=== PATIENT | male | born 1965 | race Caucasian/White ===

== ENCOUNTER 2017-07-18 12:01 | Inpatient (IN) | payer OTHER ==
[~2017-07-18] VITALS: Ht 195.6 cm; Wt 109.0 kg
[2017-07-18 12:06] VITALS: BP 154/79
--- NOTE | 2017-07-18 12:21 | Emergency Room Report ---
History of Present Illness Time Seen by [id number] Presenting Problem in Triage Pt arrived:Walked Presenting Problem:CHEST PAIN AND LEFT ARM PAIN, DIAPHORESIS. Onset of symptoms date/time:07/17 or onset unknown for:MEDICAL HX UNKNOWN Treatment Prior to Arrival: ONE 81MG ASA PRESS TENDER STAR SIGNAL Provided by:SELF Sepsis Risk Assessment: Temp: B/P: 154/79 MAP: 104 Pulse: 71 Resp: 22 Recent fever? N Clinical Suspician of Infection? N Mental Status: 1 - Regular (Normal Baseline) Sepsis Risk:Low Sepsis Risk Have you (or family members/close friends) recently traveled outside the [place]? N If Yes, where/when: Have you had exposure to infectious disease within the past month? TB? Other? Specify: Chest pain intermittently since about four days ago, takes daily aspirin. Presented to cardiology today and NOVELTY MAKER obtained EKG, sent patient to ED for STEMI. Patient reports pain is SS, rad to LUE, constant since 0300 today, associated with SOB, nausea; no leg pain. Reports no hx of known CAD, states smokes, has hyperlipidemia, hypertension, mom hx CAD. ALLERGIES Coded Allergies: No Known Allergies (07/18/17) History Medical History General Angina: No IN: No Hypertension? Yes CHF? No Immunization Hx DT/Tetanus Unknown Surgical Hx Previous Surgery?N Social History Smoking Hx Smoker: Current Every Day Smoker Tobacco: Yes Type Cigarettes Packs/day 1 1/2 - 2 Packs Are you/the child exposed to second-hand smoke: Yes Alcohol Alcohol: No Review of Systems All Other Systems Reviewed and Negative Cardiovascular see HPI Physical Exam Vital Signs Vital Signs Date Time Temp Pulse Resp B/P Pulse O2 O2 Flow FiO2 Ox Delivery Rate 07/18 1206 71 22 154/79 94 General Appearance normal appearance, WD/WN, mild distress Eye Exam - bilateral eye normal exam, bilateral eye PERRL, bilateral eye abnormal EOM Neck normal inspection, non-tender, supple, full range of motion Respiratory Status Yes: trachea midline, chest symmetrical, non tender chest. No: respiratory distress, tender on palpation, use of accessory muscles, pain on inspiration, pain on expiration, productive cough, non productive cough. Lung Sounds bilateral: normal breath sounds, lungs clear. Cardiovascular normal exam, regular rate/rhythm, no peripheral edema, no gallop, no JVD, no murmur, no rub, normal peripheral pulses Gastrointestinal normal bowel sounds, normal exam, non tender, soft, no organomegaly, no pulsatile mass, no guarding, no rebound Extremities non-tender, normal range of motion, normal inspection, normal capillary refill Strength 5 Upper Ext (L), 5 Upper Ext (R), 5 Lower Ext (L), 5 Lower Ext (R) Neurologic alert, normal exam, no motor/sensory deficits, oriented x 3 Glascow Coma Scale Glascow Coma Scale Response Value EYE response: 4 Spontaneously 4 MOTOR response: 6 OBEYS 6 VERBAL response: 5 Oriented & Converses 5 Total 15 Skin intact, normal color, warm/dry Medical Decision Making LABS/Meds/Orders Pt receiving controlled substance in ED? No Results/Orders Current Medication Orders Sig/Kendall Start time Last Medication Dose Route Stop Time Status Admin Aspirin 0 .STK-MED ONE 07/18 1205 DC .ROUTE Ticagrelor 0 .STK-MED ONE 07/18 1205 DC PO Heparin Sodium 0 .STK-MED ONE 07/18 1203 DC (Porcine) .ROUTE Orders Procedure Date/time Status LHC W/VENTRICLE 07/18 1216 Active CM/EKG CM/EKG EKG NSR, no EKG for comparison, ST elevation (inferior ST elevation) Consult Physician Consult Time Called 1215 Reason Pt. Condition ( ) Comments transferred to roofing laborer after aspirin and Brilenta given Departure Departure Time of Disposition 1210 Disposition Still a Patient Clinical Impression Primary Impression: Acute inferior myocardial infarction Condition STABLE Referrals FELIX GARCIA (PCP) ED Critical Care Critical Care Yes Time spent < 30 min Vital system(s) involved: Circulatory Failure (acute IN), acute IN I was present at bedside for Coordinating pt's care, Interpreting EKGs/Strips , During my initial exam at 1221
--- NOTE | 2017-07-18 12:21 | Emergency Room Report ---
History of Present Illness Time Seen by [id number] Presenting Problem in Triage Pt arrived:Walked Presenting Problem:CHEST PAIN AND LEFT ARM PAIN, DIAPHORESIS. Onset of symptoms date/time:07/17 or onset unknown for:MEDICAL HX UNKNOWN Treatment Prior to Arrival: ONE 81MG ASA CHANGE CONTROL COORDINATOR Provided by:SELF Sepsis Risk Assessment: Temp: B/P: 154/79 MAP: 104 Pulse: 71 Resp: 22 Recent fever? N Clinical Suspician of Infection? N Mental Status: 1 - Regular (Normal Baseline) Sepsis Risk:Low Sepsis Risk Have you (or family members/close friends) recently traveled outside the [place]? N If Yes, where/when: Have you had exposure to infectious disease within the past month? TB? Other? Specify: Chest pain intermittently since about four days ago, takes daily aspirin. Presented to cardiology today and ZINC PLATE CUTTER obtained EKG, sent patient to ED for STEMI. Patient reports pain is SS, rad to LUE, constant since 0300 today, associated with SOB, nausea; no leg pain. Reports no hx of known CAD, states smokes, has hyperlipidemia, hypertension, mom hx CAD. ALLERGIES Coded Allergies: No Known Allergies (07/18/17) History Medical History General Angina: No AL: No Hypertension? Yes CHF? No Immunization Hx DT/Tetanus Unknown Surgical Hx Previous Surgery?N Social History Smoking Hx Smoker: Current Every Day Smoker Tobacco: Yes Type Cigarettes Packs/day 1 1/2 - 2 Packs Are you/the child exposed to second-hand smoke: Yes Alcohol Alcohol: No Review of Systems All Other Systems Reviewed and Negative Cardiovascular see HPI Physical Exam Vital Signs Vital Signs Date Time Temp Pulse Resp B/P Pulse O2 O2 Flow FiO2 Ox Delivery Rate 07/18 1206 71 22 154/79 94 General Appearance normal appearance, WD/WN, mild distress Eye Exam - bilateral eye normal exam, bilateral eye PERRL, bilateral eye abnormal EOM Neck normal inspection, non-tender, supple, full range of motion Respiratory Status Yes: trachea midline, chest symmetrical, non tender chest. No: respiratory distress, tender on palpation, use of accessory muscles, pain on inspiration, pain on expiration, productive cough, non productive cough. Lung Sounds bilateral: normal breath sounds, lungs clear. Cardiovascular normal exam, regular rate/rhythm, no peripheral edema, no gallop, no JVD, no murmur, no rub, normal peripheral pulses Gastrointestinal normal bowel sounds, normal exam, non tender, soft, no organomegaly, no pulsatile mass, no guarding, no rebound Extremities non-tender, normal range of motion, normal inspection, normal capillary refill Strength 5 Upper Ext (L), 5 Upper Ext (R), 5 Lower Ext (L), 5 Lower Ext (R) Neurologic alert, normal exam, no motor/sensory deficits, oriented x 3 Glascow Coma Scale Glascow Coma Scale Response Value EYE response: 4 Spontaneously 4 MOTOR response: 6 OBEYS 6 VERBAL response: 5 Oriented & Converses 5 Total 15 Skin intact, normal color, warm/dry Medical Decision Making LABS/Meds/Orders Pt receiving controlled substance in ED? No Results/Orders Current Medication Orders Sig/Kendall Start time Last Medication Dose Route Stop Time Status Admin Aspirin 0 .STK-MED ONE 07/18 1205 DC .ROUTE Ticagrelor 0 .STK-MED ONE 07/18 1205 DC PO Heparin Sodium 0 .STK-MED ONE 07/18 1203 DC (Porcine) .ROUTE Orders Procedure Date/time Status LHC W/VENTRICLE 07/18 1216 Active CM/EKG CM/EKG EKG NSR, no EKG for comparison, ST elevation (inferior ST elevation) Consult Physician Consult Time Called 1215 Reason Pt. Condition ( ) Comments transferred to catheterization laboratory technician after aspirin and Brilenta given Departure Departure Time of Disposition 1210 Disposition Still a Patient Clinical Impression Primary Impression: Acute inferior myocardial infarction Condition STABLE Referrals FELIX GARCIA (PCP) ED Critical Care Critical Care Yes Time spent < 30 min Vital system(s) involved: Circulatory Failure (acute AL), acute AL I was present at bedside for Coordinating pt's care, Interpreting EKGs/Strips , During my initial exam at 1221
[2017-07-18 12:31] LABS: HEMOGLOBIN 17.6 g/dL (14.1-18.0); LYMPH # 2.9 K/mm3 (0.7-4.5); LYMPH % 26.1 % (10-50)
--- OUTSIDE RECORDS SUMMARY | 2017-07-18 13:11 | External Medical Summary Rpt | CCD ---
Author Author Conduent Organization Conduent Address Unknown Phone Unavailable Purpose Continuity of Care Document - through 2016
--- OUTSIDE RECORDS SUMMARY | 2017-07-18 13:11 | External Medical Summary Rpt | CCD ---
Author Author , [employer] Address Unknown Phone [email or web address] Immunization Name Date Rout CVX Reac Dose Comm Prov Is Faci e tion ent ider Refu lity Give sed n Infl 12-1 140 0.5 Hist [facility] No [facility] uenz 6-20 mL oric 1 1 a, 14 al P-Fr Info ee rmat ion - Sour ce Unsp ecif ied
--- OUTSIDE RECORDS SUMMARY | 2017-07-18 13:11 | External Medical Summary Rpt | CCD ---
Author Author , BEL Organization BEL Address Unknown Phone [email or web address] Purpose Continuity of Care Document - 03-31-2013 through 2016 Results Labs Lab Lab Date Result Refere Interp Status Commen Order [place] [address]-9 (2013 04:15) *GFR complet 013 only ed 04:15 applies to adults over the age 18. If complet 013 patient ed 04:15 is Olga Lidia n, multipl y GFR by 1.120. Normal complet 013 Range: ed 04:15 60 Ml/min/ 1.73 sq meters GLOMERU complet 013 LAR ed 04:15 FILTRAT ION RATE INTERPR ETATION OSMOLAL 278 272 - complet ITY 013 295 ed 04:15 BUN/CRE 9 ratio 6 - 25 complet RATIO 013 ed 04:15 CALCIUM 8.2 8.50 - Below complet 013 mg/dl 10.10 low ed 04:15 normal GFR 60 complet 013 ml/min ed 04:15 AGE [age] yrs complet 013 ed 04:15 CREATIN 1.1 0.60 - complet INE 013 mg/dl 1.30 ed 04:15 BUN 10 7 - 18 complet 013 mg/dl ed 04:15 GLUCOSE 151 70 - Above complet 013 mg/dl 120 high ed 04:15 normal ANION 13 5 - 15 complet GAP 013 mmol/L ed 04:15 TOTAL 25 21 - 32 complet CO2 013 mmol/L ed 04:15 CHLORID 103 98 - complet E 013 mmol/L 107 ed 04:15 POTASSI 3.4 3.50 - Below complet UM 013 mmol/L 5.10 low ed 04:15 normal SODIUM 09-11-2 138 136 - complet 013 mmol/L 145 ed 04:15 [id number] (2013 04:15) Manual 09-11-2 NOT complet Diff 013 INDICAT ed 04:15 ED BA# 09-11-2 0.11 0.00 - complet 013 K/uL 0.20 ed 04:15 EO# 09-11-2 0.25 0.00 - complet 013 K/uL 0.70 ed 04:15 NE# 09-11-2 6.12 2.00 - complet 013 K/uL 6.90 ed 04:15 MO# 09-11-2 0.48 0.00 - complet 013 K/uL 0.90 ed 04:15 LY# 09-11-2 3.13 0.60 - complet 013 K/uL 3.40 ed 04:15 BA% 09-11-2 1.10 % 0.00 - complet 013 2.50 ed 04:15 EO% 09-11-2 2.50 % 0.00 - complet 013 7.00 ed 04:15 NE% 09-11-2 60.6 % 37.0 - complet 013 80.0 ed 04:15 MO% 0911-2 4.8 % 0.0 - complet 013 12.0 ed 04:15 LY% 0911-2 31.0 % 10.0 - complet 013 50.0 ed 04:15 PLT --2 187 142 - complet 013 K/uL 424 ed 04:15 RDW 05-08-2 13.7 % 11.60 - complet 013 14.80 ed 04:15 MCHC --2 34.7 31.80 - complet 013 g/dL 35.40 ed 04:15 MCH -11-2 31.1 pg 27.0 - complet 013 31.20 ed 04:15 MCV --2 89.8 fL 80.0 - complet 013 97.0 ed 04:15 HCT -11-2 45 % 37.70 - complet 013 53.70 ed 04:15 HGB --2 15.6 12.20 - complet 013 g/dL 18.10 ed 04:15 RBC -11-2 5.01 4.04 - complet 013 M/uL 6.13 ed 04:15 WBC -11-2 10.1 4.60 - complet 013 K/uL 10.20 ed 04:15 [facility] wCPK (2013 01:25) CKMB 0.5 0.01 - complet 013 ng/ml 3.60 ed 01:25 RELATIV complet 013 E INDEX ed 01:25 NOT AVAILAB LE ON PATIENT S W/GAEL L CKMB AMI > complet 013 5.0 > ed 01:25 4.0 05-08- [place] complet 013 ZONE > ed 01:25 5.0 </= 4.0 05-08- NON AMI complet 013 </= ed 01:25 5.0 NA MMB complet 013 (ng/ml) ed 01:25 Relativ e Index CKMB NOT 0 - complet INDEX 013 APPL % 4.10 ed 01:25 CK 05-08- 47 U/L 26 - complet 013 308 ed 01:25 [id number] (2013 01:25) TROPONI 05-08- 0.01 0.00 - complet N-I 013 ng/ml 0.06 ed 01:25 0.06 complet 013 ng/ml ed 01:25 (POSITI VE) 0 - complet 013 0.06 ed 01:25 ng/ml (NEGATI VE) INITIAL complet 013 ed 01:25 TROPONI N? __NO_ 3.0238. MJS. . .M [facility] wCPK (05-07-2013 19:20) RELATIV complet 013 E INDEX ed 19:20 NOT AVAILAB LE ON PATIENT S W/GAEL L CKMB 05-07-2 AMI > complet 013 5.0 > ed 19:20 4.0 -- [place] complet 013 ZONE > ed 19:20 5.0 </= 4.0 -10-2 NON AMI complet 013 </= ed 19:20 5.0 NA --2 MMB complet 013 (ng/ml) ed 19:20 Relativ e Index CKMB 05-07-2 NOT 0 - complet INDEX 013 APPL % 4.10 ed 19:20 CK --2 54 U/L 26 - complet 013 308 ed 19:20 CKMB 0.3 0.01 - complet 013 ng/ml 3.60 ed 19:20 [id number] (05-07-2013 19:20) > 0.06 complet 013 ng/ml ed 19:20 (POSITI VE) 0 - complet 013 0.06 ed 19:20 ng/ml (NEGATI VE) INITIAL complet 013 ed 19:20 TROPONI N? __NO_ 3.1952. MJS. . .M TROPONI 0.00 0.00 - complet N-I 013 ng/ml 0.06 ed 19:20 CKMB wCPK (05-07-2013 13:25) RELATIV complet 013 E INDEX ed 13:25 NOT AVAILAB LE ON PATIENT S W/GAEL L CKMB AMI > complet 013 5.0 > ed 13:25 4.0 [place] complet 013 ZONE > ed 13:25 5.0 </= 4.0 NON AMI complet 013 </= ed 13:25 5.0 NA MMB complet 013 (ng/ml) ed 13:25 Relativ e Index CKMB NOT 0 - complet INDEX 013 APPL % 4.10 ed 13:25 CK 50 U/L 26 - complet 013 308 ed 13:25 CKMB 0.6 0.01 - complet 013 ng/ml 3.60 ed 13:25 [id number] (05-07-2013 13:25) > 0.06 complet 013 ng/ml ed 13:25 (POSITI VE) 0 - complet 013 0.06 ed 13:25 ng/ml (NEGATI VE) INITIAL complet 013 ed 13:25 TROPONI N? __NO_ 3.1402. MDA. . .M TROPONI 0.01 0.00 - complet N-I 013 ng/ml 0.06 ed 13:25 [id number] (05-07-2013 09:56) Crystal NEGATIV NL: active s 013 E NEGATIV 09:56 E Casts 09-10-2 NEGATIV NL: active 013 E NEGATIV 09:56 E Yeast 09-10-2 NEGATIV NL: active 013 E NEGATIV 09:56 E Mucous 09-10-2 NEGATIV NL: active 013 E NEGATIV 09:56 E Bacteri 09-10-2 NEGATIV NL: active a 013 E NEGATIV 09:56 E Epi 09-10-2 NEGATIV NL: active Cells 013 E NEGATIV 09:56 E Wbc 09-10-2 NEGATIV NL: active 013 E NEGATIV 09:56 E MICROSC 09-10-2 See active OPIC 013 Below_ 09:56 Leukocy 09-10-2 NEG NL: complet tobias 013 Negativ ed 09:56 e Nitrite 09-10-2 NEG NL: complet 013 Negativ ed 09:56 e Urobili 09-10-2 0.2 NL: 0.2 complet nogen 013 - 1.0 ed 09:56 Protein 09-10-2 NEG NL: complet 013 Negativ ed 09:56 e pH 09-10-2 6.0 NL: complet 013 ed 09:56 Blood 09-10-2 NEG NL: complet 013 Negativ ed 09:56 e Specifi 09--2 1.010 NL: complet c Gr 013 1.00 >= ed 09:56 1.030 Ketones -10-2 NEG NL: complet 013 Negativ ed 09:56 e Bilirub --2 NEG NL: complet in 013 Negativ ed 09:56 e Glucose -10-2 NEG NL: complet 013 Negativ ed 09:56 e Clarity 09-10-2 CLEAR NL: complet 013 Negativ ed 09:56 e Color 09-10-2 LT. NL: complet 013 YELL Negativ ed 09:56 e CULTURE --2 NOT complet SETUP 013 INDIC ed 09:56 METH OF --2 C CATCH complet GINNY 013 ed 09:56 Rbc 09-10-2 NEGATIV NL: active 013 E NEGATIV 09:56 E [id number] (05-07-2013 07:32) 09-10-2 > 0.06 complet 013 ng/ml ed 07:32 (POSITI VE) --2 0 - complet 013 0.06 ed 07:32 ng/ml (NEGATI VE) INITIAL complet 013 ed 07:32 TROPONI N? _YES_ 3.0808. MDA. . .M TROPONI 0.00 0.00 - complet N-I 013 ng/ml 0.06 ed 07:32 [id number] (05-07-2013 07:32) LIPASE 372 U/L 73 - complet 013 393 ed 07:32 CKMB wCPK (05-07-2013 07:32) RELATIV complet 013 E INDEX ed 07:32 NOT AVAILAB LE ON PATIENT S W/GAEL L CKMB AMI > complet 013 5.0 > ed 07:32 4.0 [place] complet 013 ZONE > ed 07:32 5.0 </= 4.0 NON AMI complet 013 </= ed 07:32 5.0 NA MMB complet 013 (ng/ml) ed 07:32 Relativ e Index CKMB NOT 0 - complet INDEX 013 APPL % 4.10 ed 07:32 CK 51 U/L 26 - complet 013 308 ed 07:32 CKMB 0.4 0.01 - complet 013 ng/ml 3.60 ed 07:32 [id number] (05-07-2013 07:32) AMYLASE 74 IU/L 25 - complet 013 115 ed 07:32 [id number] (05-07-2013 07:32) MYOGLOB 50 10 - 92 complet IN 013 ng/ml ed 07:32 C DIFFICLE TOXIN STOOL AB EIA (05-06-2013 14:33) REPORT YES complet TO IC 013 ed 14:33 C. diff NEGATIV NORMAL: complet Toxin 013 E ed A/B: 14:33 NEGATIV E Consist Semi-so complet ency: 013 lid ed 14:33 [id number] (05-06-2013 14:33) Mucous NEGATIV NL: active 013 E NEGATIV 14:33 E CULTURE 09-09-2 NOT complet SETUP 013 INDIC ed 14:33 METH OF C CATCH complet GINNY 013 ed 14:33 Crystal NEGATIV NL: active s 013 E NEGATIV 14:33 E Casts NEGATIV NL: active 013 E NEGATIV 14:33 E Yeast NEGATIV NL: active 013 E NEGATIV 14:33 E Bacteri NEGATIV NL: active a 013 E NEGATIV 14:33 E Epi NEGATIV NL: active Cells 013 E NEGATIV 14:33 E Rbc NEGATIV NL: active 013 E NEGATIV 14:33 E Wbc NEGATIV NL: active 013 E NEGATIV 14:33 E MICROSC See active OPIC 013 Below_ 14:33 Leukocy NEG NL: complet tobias 013 Negativ ed 14:33 e Nitrite NEG NL: complet 013 Negativ ed 14:33 e Urobili 1.0 NL: 0.2 complet nogen 013 - 1.0 ed 14:33 Protein NEG NL: complet 013 Negativ ed 14:33 e pH 6.0 NL: complet 013 ed 14:33 Blood NEG NL: complet 013 Negativ ed 14:33 e Specifi >=1.030 NL: complet c Gr 013 1.00 >= ed 14:33 1.030 Ketones NEG NL: complet 013 Negativ ed 14:33 e Bilirub NEG NL: complet in 013 Negativ ed 14:33 e Glucose NEG NL: complet 013 Negativ ed 14:33 e Clarity CLEAR NL: complet 013 Negativ ed 14:33 e Color YELLOW NL: complet 013 Negativ ed 14:33 e [id number] (05-06-2013 10:53) SODIUM 134 136 - Below complet 013 mmol/L 145 low ed 10:53 normal *GFR complet 013 only ed 10:53 applies to adults over the age 18. If complet 013 patient ed 10:53 is Olga Lidia n, multipl y GFR by 1.120. Normal complet 013 Range: ed 10:53 60 Ml/min/ 1.73 sq meters /BLDo/G complet 013 LOMERUL ed 10:53 AR FILTRAT ION RATE INTERPR ETATION /BLDx/ A/G 1.3 1.0 - complet RATIO 013 ratio 3.90 ed 10:53 GLOBULI 3.2 1.30 - complet N 013 g/dl 3.50 ed 10:53 ALBUMIN 4.1 3.40 - complet 013 g/dl 5.0 ed 10:53 TOTAL 7.3 6.40 - complet PROTEIN 013 g/dl 8.20 ed 10:53 ALK 100 50 - complet PHOS 013 IU/L 136 ed 10:53 ALT 50 IU/L 12 - 78 complet (SGPT) 013 ed 10:53 AST 21 IU/L 15 - 37 complet (SGOT) 013 ed 10:53 TOTAL 1.4 0.20 - Above complet ARACELI 013 mg/dl 1.0 high ed 10:53 normal CALCIUM 8.7 8.50 - complet 013 mg/dl 10.10 ed 10:53 GFR 60 complet 013 ml/min ed 10:53 AGE [age] yrs complet 013 ed 10:53 CREATIN 1.0 0.60 - complet INE 013 mg/dl 1.30 ed 10:53 BUN 14 7 - 18 complet 013 mg/dl ed 10:53 GLUCOSE 90 70 - complet 013 mg/dl 120 ed 10:53 ANION 14 5 - 15 complet GAP 013 mmol/L ed 10:53 TOTAL 25 21 - 32 complet CO2 013 mmol/L ed 10:53 CHLORID 99 98 - complet E 013 mmol/L 107 ed 10:53 POTASSI 3.6 3.50 - complet UM 013 mmol/L 5.10 ed 10:53 [id number] (05-06-2013 10:53) TSH 05-06- 1.20 0.36 - complet 013 uIU/mL 3.74 ed 10:53 [id number] (05-06-2013 10:53) URIC 05-06- 3.5 2.60 - complet ACID 013 mg/dL 7.20 ed 10:53 [id number] (05-06-2013 10:53) EO# 09-09-2 0.21 0.00 - complet 013 K/uL 0.70 ed 10:53 NE# [id number] 10.45 2.00 - Above complet 013 K/uL 6.90 high ed 10:53 normal MO# 05-06-2 1.23 0.00 - Above complet 013 K/uL 0.90 high ed 10:53 normal LY# 05-06- 2.69 0.60 - complet 013 K/uL 3.40 ed 10:53 BA% 05-06- 0.80 % 0.00 - complet 013 2.50 ed 10:53 EO% 05-06-2 1.40 % 0.00 - complet 013 7.00 ed 10:53 NE% 05-06- 71.1 % 37.0 - complet 013 80.0 ed 10:53 MO% 05-06-2 8.4 % 0.0 - complet 013 12.0 ed 10:53 LY% 05-06- 18.3 % 10.0 - complet 013 50.0 ed 10:53 PLT 244 142 - complet 013 K/uL 424 ed 10:53 RDW 13.8 % 11.60 - complet 013 14.80 ed 10:53 MCHC 36.0 31.80 - Above complet 013 g/dL 35.40 high ed 10:53 normal MCH 05-06- 31.8 pg 27.0 - Above complet 013 31.20 high ed 10:53 normal MCV 88.4 fL 80.0 - complet 013 97.0 ed 10:53 HCT 05-06- 48 % 37.70 - complet 013 53.70 ed 10:53 HGB 17.3 12.20 - complet 013 g/dL 18.10 ed 10:53 RBC 05-06- 5.44 4.04 - complet 013 M/uL 6.13 ed 10:53 WBC 14.7 4.60 - Above complet 013 K/uL 10.20 high ed 10:53 normal Manual NOT complet Diff 013 INDICAT ed 10:53 ED BA# 0.12 0.00 - complet 013 K/uL 0.20 ed 10:53 [id number] (03-31-2013 08:25) URIC 2.5 2.60 - Below complet ACID 013 mg/dL 7.20 low ed 08:25 normal
--- OUTSIDE RECORDS SUMMARY | 2017-07-18 13:11 | External Medical Summary Rpt | CCD ---
Author Author , BEL Organization BEL Address Unknown Phone [email or web address] Purpose Continuity of Care Document - 03-31-2013 through 2016 Results Labs Lab Lab Date Result Refere Interp Status Commen Order [place] [address]-3 (2013 04:15) *GFR complet 013 only ed [...] - complet 013 mmol/L 145 ed 04:15 [id number] (2013 04:15) Manual 09-11-2 NOT complet Diff [...] - complet 013 K/uL 10.20 ed 04:15 [facility] wCPK (2013 01:25) CKMB 0.5 0.01 - [...] 26 - complet 013 308 ed 01:25 [id number] (2013 01:25) TROPONI 05-08- 0.01 0.00 - complet N-I 013 ng/ml 0.06 ed 01:25 0.06 complet 013 ng/ml ed 01:25 (POSITI VE) 0 - complet 013 0.06 ed 01:25 ng/ml (NEGATI VE) INITIAL complet 013 ed 01:25 TROPONI N? __NO_ 3.0238. MJS. . .M [facility] wCPK (05-07-2013 19:20) RELATIV complet 013 E [...] - complet 013 ng/ml 3.60 ed 19:20 [id number] (05-07-2013 19:20) > 0.06 complet 013 ng/ml [...] - complet 013 ng/ml 3.60 ed 13:25 [id number] (05-07-2013 13:25) > 0.06 complet 013 ng/ml ed 13:25 (POSITI VE) 0 - complet 013 0.06 ed 13:25 ng/ml (NEGATI VE) INITIAL complet 013 ed 13:25 TROPONI N? __NO_ 3.1402. MDA. . .M TROPONI 0.01 0.00 - complet N-I 013 ng/ml 0.06 ed 13:25 [id number] (05-07-2013 09:56) Crystal NEGATIV NL: active s [...] NL: active 013 E NEGATIV 09:56 E [id number] (05-07-2013 07:32) 09-10-2 > 0.06 complet 013 [...] Semi-so complet ency: 013 lid ed 14:33 [id number] (05-06-2013 14:33) Mucous NEGATIV NL: active 013 [...] NL: complet 013 Negativ ed 14:33 e 92457-5 (05-06-2013 10:53) SODIUM 134 136 - Below [...] complet UM 013 mmol/L 5.10 ed 10:53 [id number] (05-06-2013 10:53) TSH 05-06- 1.20 0.36 - complet 013 uIU/mL 3.74 ed 10:53 [id number] (05-06-2013 10:53) URIC 05-06- 3.5 2.60 - complet ACID 013 mg/dL 7.20 ed 10:53 [id number] (05-06-2013 10:53) EO# 09-09-2 0.21 0.00 - [...]
--- OUTSIDE RECORDS SUMMARY | 2017-07-18 13:11 | External Medical Summary Rpt | CCD ---
Author Author , [employer] Address Unknown Phone [email or web address] Immunization Name Date Rout CVX Reac Dose Comm Prov Is Faci e tion ent ider Refu lity Give sed n Infl 12-1 140 0.5 Hist [facility] No [facility] uenz 6-20 mL oric 1 1 a, 14 al P-Fr Info ee rmat ion - Sour ce Unsp ecif ied
--- OUTSIDE RECORDS SUMMARY | 2017-07-18 15:45 | External Medical Summary Rpt | CCD ---
Author Author , [employer] Address Unknown Phone [email or web address] [email or web address] Name Date Rout CVX Reac Dose Comm Prov Is Faci e tion ent ider Refu lity Give sed n Infl 12-1 140 0.5 Hist [facility] No [facility] uenz 6-20 mL oric 1 1 a, 14 al P-Fr Info ee rmat ion - Sour ce Unsp ecif ied
--- OUTSIDE RECORDS SUMMARY | 2017-07-18 15:45 | External Medical Summary Rpt | CCD ---
Demographics Home Phone Preferred Language Guamanian Marital Status Unknown [place] Affiliation Unknown Race Unknown Ethnic Group Unknown Author Author , [facility] Organization BEL Address Unknown Phone [email or web address] Purpose Continuity of Care Document - 03-31-2013 through 2016 Results Labs Lab Lab Date Result Refere Interp Status Commen Order Detail nces retati t Range on Activated clotting time (07-18-2017 13:31) Activat = 327 74-125 complet ed 017 SEC ed clottin 13:31 g time Activated clotting time (07-18-2017 12:54) Activat > 400 74-125 complet ed 017 SEC ed clottin 12:54 g time CBC w auto diff (07-18-2017 12:04) Automat = 0.2 0-0.2 complet ed 017 K/MM3 ed blood 12:04 basophi l count (count/ vo Baso % = 1.5 % 0.1-2.0 complet 017 ed 12:04 Automat = 0.3 0.0-0.4 complet ed 017 K/mm3 ed blood 12:04 eosinop hil count Automat = 2.8 % 0.1-12. complet ed 017 0 ed blood 12:04 eosinop hils/10 0 leukocy t Blood = 7.2 1.3-8.0 complet granulo 017 K/mm3 ed cytes 12:04 automat ed count (numb Granulo = 64.3 37.0-80 complet cyte 017 % .0 ed percent 12:04 age Blood = 51.5 42.0-52 complet hematoc 017 % .0 ed rit 12:04 (volume fractio n) Blood = 17.6 14.1-18 complet hemoglo 017 g/dL .0 ed bin 12:04 measure ment (mass/v olum Absolut = 2.9 0.7-4.5 complet e 017 K/mm3 ed lymphoc 12:04 yte count Lymphoc = 26.1 10-50 complet yte 017 % ed count, 12:04 blood, automat ed Mean = 31.0 27-31.2 complet corpusc 017 pg ed ular 12:04 hemoglo bin (MCH) determ Automat = 34.2 31.8-35 complet ed 017 g/dl .4 ed erythro 12:04 cyte mean corpusc ular h Automat = 90.7 82.2-97 complet ed 017 fl .8 ed erythro 12:04 cyte mean corpusc ular v Absolut = 0.6 0.1-1.0 complet e 017 K/mm3 ed monocyt 12:04 e count [place] % = 5.4 % 1.7-9.3 complet 017 ed 12:04 Automat = 8.1 7.4-10. complet ed 017 fl 4 ed blood 12:04 platele t mean volume jami Blood = 190 142-424 complet platele 017 K/mm3 ed t count 12: Red = 5.68 4.6-6.2 complet blood 017 M/mm3 ed cell 12:04 count Automat = 12.6 11.5-17 complet ed 017 % .5 ed erythro 12:04 cyte distrib ution width Blood = 11.1 4.8-10. complet leukocy 017 K/MM3 8 ed tobias 12:04 count (number /volume ) Basic metabolic panel (07-18-2017 12:04) Serum = 12 7-18 complet or 017 mg/dL ed plasma 12:04 urea nitroge n measure men Serum = 8.7 8.5-10. complet or 017 mg/dL 1 ed plasma 12:04 calcium measure ment (mas Serum = 104 98-107 complet or 017 mmoL/L ed plasma 12:04 chlorid e measure ment (mo Carbon = 31 21.0-32 complet dioxide 017 mmoL/L .0 ed 12:04 measure ment Serum = 1.0 0.70-1. complet or 017 mg/dL 30 ed plasma 12:04 creatin ine measure ment ( Estimat = 122 50-200 complet ion of 017 ML/MIN ed creatin 12:04 ine renal clearan ce Estimat = 78 >60 complet ed 017 ML/MIN ed glomeru 12:04 lar filtrat ion rate (GF Comment: REFERENCE RANGE: >60 ML/MIN/1.73 SQUARE METERS Comment: If this patient is -[place], then multiply the Comment: result by 1.210. Serum = 103 74-106 complet or 017 mg/dL ed plasma 12:04 glucose measure ment (mas Serum = 4.1 3.5-5.1 complet potassi 017 mmoL/L ed um 12:04 measure ment Serum = 143 136-145 complet sodium 017 mmoL/L ed measure 12:04 ment Cardiac enzymes (07-18-2017 12:04) Serum = 11.8 0-4.0 complet or 017 U/L ed plasma 12:04 creatin e kinase MB (CK-M Serum = 51.9 0.0-3.6 complet or 017 ng/mL ed plasma 12:04 creatin e kinase MB measu Comment: CRITICAL RESULTS Comment: RESULTS CALLED TO: ERICA 07/18/17 1316 Rosangela Gifford Serum = 441 39-308 complet or 017 U/L ed plasma 12:04 creatin e kinase measure m Serum = 2.89 0.00-0. complet or 017 ng/mL 06 ed plasma 12:04 troponi n i.cardi ac measu Comment: CRITICAL RESULTS Comment: RESULTS CALLED TO: ERICA 07/18/17 1324 Rosangela Gifford Comment: > 0.5 IS CONSISTENT WITH MYOCARDIAL ISCHEMIA OR INFARCTION 21953-7 (2013 04:15) WBC 10.1 4.60 - complet 013 K/uL 10.20 ed 04:15 RBC 5.01 4.04 - complet 013 M/uL 6.13 ed 04:15 HGB 15.6 12.20 - complet 013 g/dL 18.10 ed 04:15 HCT 45 % 37.70 - complet 013 53.70 ed 04:15 MCV 89.8 fL 80.0 - complet 013 97.0 ed 04:15 MCH 31.1 pg 27.0 - complet 013 31.20 ed 04:15 MCHC 34.7 31.80 - complet 013 g/dL 35.40 ed 04:15 RDW 13.7 % 11.60 - complet 013 14.80 ed 04:15 PLT 187 142 - complet 013 K/uL 424 ed 04:15 LY% 31.0 % 10.0 - complet 013 50.0 ed 04:15 MO% 05-08-2 4.8 % 0.0 - complet 013 12.0 ed 04:15 NE% 2 60.6 % 37.0 - complet 013 80.0 ed 04:15 EO% 2 2.50 % 0.00 - complet 013 7.00 ed 04:15 BA% 1.10 % 0.00 - complet 013 2.50 ed 04:15 LY# 11-2 3.13 0.60 - complet 013 K/uL 3.40 ed 04:15 MO# -11-2 0.48 0.00 - complet 013 K/uL 0.90 ed 04:15 NE# -11-2 6.12 2.00 - complet 013 K/uL 6.90 ed 04:15 EO# 11-2 0.25 0.00 - complet 013 K/uL 0.70 ed 04:15 BA# -11-2 0.11 0.00 - complet 013 K/uL 0.20 ed 04:15 Manual 2 NOT complet Diff 013 INDICAT ed 04:15 [place] [id number] (2013 04:15) SODIUM 05-08- 138 136 - complet 013 mmol/L 145 ed 04:15 POTASSI 3.4 3.50 - Below complet UM 013 mmol/L 5.10 low ed 04:15 normal CHLORID 103 98 - complet E 013 mmol/L 107 ed 04:15 TOTAL 25 21 - 32 complet CO2 013 mmol/L ed 04:15 ANION 13 5 - 15 complet GAP 013 mmol/L ed 04:15 GLUCOSE 151 70 - Above complet 013 mg/dl 120 high ed 04:15 normal BUN 10 7 - 18 complet 013 mg/dl ed 04:15 CREATIN 1.1 0.60 - complet INE 013 mg/dl 1.30 ed 04:15 AGE 09 48 yrs complet 013 ed 04:15 GFR 60 complet 013 ml/min ed 04:15 CALCIUM 8.2 8.50 - Below complet 013 mg/dl 10.10 low ed 04:15 normal BUN/CRE 9 ratio 6 - 25 complet RATIO 013 ed 04:15 OSMOLAL 278 272 - complet ITY 013 295 ed 04:15 GLOMERU complet 013 LAR ed 04:15 FILTRAT ION RATE INTERPR ETATION Normal complet 013 Range: ed 04:15 60 Ml/min/ 1.73 sq meters If complet 013 patient ed 04:15 is Olga Lidia n, multipl y GFR by 1.120. *GFR complet 013 only ed 04:15 applies to adults over the age 18. [id number] (2013 01:25) INITIAL complet 013 ed 01:25 TROPONI N? __NO_ 3.0238. MJS. . .M 0 - complet 013 0.06 ed 01:25 ng/ml (NEGATI VE) 0.06 complet 013 ng/ml ed 01:25 (POSITI VE) TROPONI 0.01 0.00 - complet N-I 013 ng/ml 0.06 ed 01:25 CKMB wCPK (2013 01:25) CK 47 U/L 26 - complet 013 308 ed 01:25 CKMB NOT 0 - complet INDEX 013 APPL % 4.10 ed 01:25 MMB complet 013 (ng/ml) ed 01:25 Relativ e Index NON AMI complet 013 </= ed 01:25 5.0 NA [place] complet 013 ZONE > ed 01:25 5.0 </= 4.0 05-08- AMI > complet 013 5.0 > ed 01:25 4.0 RELATIV complet 013 E INDEX ed 01:25 NOT AVAILAB LE ON PATIENT S W/GAEL L CKMB CKMB 0.5 0.01 - complet 013 ng/ml 3.60 ed 01:25 [id number] (05-07-2013 19:20) TROPONI 0.00 0.00 - complet N-I 013 ng/ml 0.06 ed 19:20 INITIAL complet 013 ed 19:20 TROPONI N? __NO_ 3. MJS. . .M 0 - complet 013 0.06 ed 19:20 ng/ml (NEGATI VE) > 0.06 complet 013 ng/ml ed 19:20 (POSITI VE) CKMB wCPK (05-07-2013 19:20) CKMB 0.3 0.01 - complet 013 ng/ml 3.60 ed 19:20 CK 54 U/L 26 - complet 013 308 ed 19:20 CKMB NOT 0 - complet INDEX 013 APPL % 4.10 ed 19:20 MMB complet 013 (ng/ml) ed 19:20 Relativ e Index NON AMI complet 013 </= ed 19:20 5.0 NA [place] complet 013 ZONE > ed 19:20 5.0 </= 4.0 05-07- AMI > complet 013 5.0 > ed 19:20 4.0 RELATIV complet 013 E INDEX ed 19:20 NOT AVAILAB LE ON PATIENT S W/GAEL L CKMB [id number] (05-07-2013 13:25) TROPONI 0.01 0.00 - complet N-I 013 ng/ml 0.06 ed 13:25 09-10-2 INITIAL complet 013 ed 13:25 TROPONI N? __NO_ 3.1402. MDA. . .M 0 - complet 013 0.06 ed 13:25 ng/ml (NEGATI VE) 2 > 0.06 complet 013 ng/ml ed 13:25 (POSITI VE) CKMB wCPK (05-07-2013 13:25) CKMB 0.6 0.01 - complet 013 ng/ml 3.60 ed 13:25 CK 50 U/L 26 - complet 013 308 ed 13:25 CKMB NOT 0 - complet INDEX 013 APPL % 4.10 ed 13:25 MMB complet 013 (ng/ml) ed 13:25 Relativ e Index 09 NON AMI complet 013 </= ed 13:25 5.0 NA [place] complet 013 ZONE > ed 13:25 5.0 </= 4.0 05-07- AMI > complet 013 5.0 > ed 13:25 4.0 RELATIV complet 013 E INDEX ed 13:25 NOT AVAILAB LE ON PATIENT S W/GAEL L CKMB [id number] (05-07-2013 09:56) Rbc -- NEGATIV NL: active 013 E NEGATIV 09:56 E METH OF C CATCH complet GINNY 013 ed 09:56 CULTURE NOT complet SETUP 013 INDIC ed 09:56 Color 05-07-2 LT. NL: complet 013 YELL Negativ ed 09:56 e Clarity 05-07-2 CLEAR NL: complet 013 Negativ ed 09:56 e Glucose -- NEG NL: complet 013 Negativ ed 09:56 e Bilirub -- NEG NL: complet in 013 Negativ ed 09:56 e Ketones NEG NL: complet 013 Negativ ed 09:56 e Specifi 1.010 NL: complet c Gr 013 1.00 >= ed 09:56 1.030 Blood NEG NL: complet 013 Negativ ed 09:56 e pH -10-2 6.0 NL: complet 013 ed 09:56 Protein -10-2 NEG NL: complet 013 Negativ ed 09:56 e Urobili 05-07-2 0.2 NL: 0.2 complet nogen 013 - 1.0 ed 09:56 Nitrite 09-10-2 NEG NL: complet 013 Negativ ed 09:56 e Leukocy -10-2 NEG NL: complet tobias 013 Negativ ed 09:56 e MICROSC -10-2 See active OPIC 013 Below_ 09:56 Wbc -10- NEGATIV NL: active 013 E NEGATIV 09:56 E Epi -- NEGATIV NL: active Cells 013 E NEGATIV 09:56 E Bacteri 05-07- NEGATIV NL: active a 013 E NEGATIV 09:56 E Mucous NEGATIV NL: active 013 E NEGATIV 09:56 E Yeast NEGATIV NL: active 013 E NEGATIV 09:56 E Casts NEGATIV NL: active 013 E NEGATIV 09:56 E Crystal NEGATIV NL: active s 013 E NEGATIV 09:56 E [id number] (05-07-2013 07:32) MYOGLOB 05-07-2 50 10 - 92 complet IN 013 ng/ml ed 07:32 [id number] (05-07-2013 07:32) AMYLASE 74 IU/L 25 - complet 013 115 ed 07:32 CKMB wCPK (05-07-2013 07:32) CKMB 05-07-2 0.4 0.01 - complet 013 ng/ml 3.60 ed 07:32 CK 05-07- 51 U/L 26 - complet 013 308 ed 07:32 CKMB 05-07- NOT 0 - complet INDEX 013 APPL % 4.10 ed 07:32 MMB complet 013 (ng/ml) ed 07:32 Relativ e Index NON AMI complet 013 </= ed 07:32 5.0 NA [place] complet 013 ZONE > ed 07:32 5.0 </= 4.0 AMI > complet 013 5.0 > ed 07:32 4.0 RELATIV complet 013 E INDEX ed 07:32 NOT AVAILAB LE ON PATIENT S W/GAEL L CKMB [id number] (05-07-2013 07:32) LIPASE 372 U/L 73 - complet 013 393 ed 07:32 [id number] (05-07-2013 07:32) TROPONI 0.00 0.00 - complet N-I 013 ng/ml 0.06 ed 07:32 INITIAL complet 013 ed 07:32 TROPONI N? _YES_ 3.0808. MDA. . .M 0 - complet 013 0.06 ed 07:32 ng/ml (NEGATI VE) > 0.06 complet 013 ng/ml ed 07:32 (POSITI VE) [id number] (05-06-2013 14:33) Color YELLOW NL: complet 013 Negativ ed 14:33 e Clarity CLEAR NL: complet 013 Negativ ed 14:33 e Glucose NEG NL: complet 013 Negativ ed 14:33 e Bilirub NEG NL: complet in 013 Negativ ed 14:33 e Ketones NEG NL: complet 013 Negativ ed 14:33 e Specifi >=1.030 NL: complet c Gr 013 1.00 >= ed 14:33 1.030 Blood NEG NL: complet 013 Negativ ed 14:33 e pH 6.0 NL: complet 013 ed 14:33 Protein NEG NL: complet 013 Negativ ed 14:33 e Urobili 1.0 NL: 0.2 complet nogen 013 - 1.0 ed 14:33 Nitrite NEG NL: complet 013 Negativ ed 14:33 e Leukocy NEG NL: complet tobias 013 Negativ ed 14:33 e MICROSC See active OPIC 013 Below_ 14:33 Wbc NEGATIV NL: active 013 E NEGATIV 14:33 E Rbc NEGATIV NL: active 013 E NEGATIV 14:33 E Epi NEGATIV NL: active Cells 013 E NEGATIV 14:33 E Bacteri NEGATIV NL: active a 013 E NEGATIV 14:33 E Yeast NEGATIV NL: active 013 E NEGATIV 14:33 E Casts NEGATIV NL: active 013 E NEGATIV 14:33 E Crystal NEGATIV NL: active s 013 E NEGATIV 14:33 E METH OF C CATCH complet GINNY 013 ed 14:33 CULTURE NOT complet SETUP 013 INDIC ed 14:33 Mucous NEGATIV NL: active 013 E NEGATIV 14:33 E C DIFFICLE TOXIN STOOL AB EIA (05-06-2013 14:33) Consist Semi-so complet ency: 013 lid ed 14:33 C. diff NEGATIV NORMAL: complet Toxin 013 E ed A/B: 14:33 NEGATIV E REPORT YES complet TO IC 013 ed 14:33 [id number] (05-06-2013 10:53) BA# 0.12 0.00 - complet 013 K/uL 0.20 ed 10:53 Manual NOT complet Diff 013 INDICAT ed 10:53 ED WBC 14.7 4.60 - Above complet 013 K/uL 10.20 high ed 10:53 normal RBC 5.44 4.04 - complet 013 M/uL 6.13 ed 10:53 HGB 17.3 12.20 - complet 013 g/dL 18.10 ed 10:53 HCT 48 % 37.70 - complet 013 53.70 ed 10:53 MCV 88.4 fL 80.0 - complet 013 97.0 ed 10:53 MCH 31.8 pg 27.0 - Above complet 013 31.20 high ed 10:53 normal MCHC 36.0 31.80 - Above complet 013 g/dL 35.40 high ed 10:53 normal RDW 05-06- 13.8 % 11.60 - complet 013 14.80 ed 10:53 PLT 09-2 244 142 - complet 013 K/uL 424 ed 10:53 LY% 09-09-2 18.3 % 10.0 - complet 013 50.0 ed 10:53 MO% 09-09-2 8.4 % 0.0 - complet 013 12.0 ed 10:53 NE% 09-09-2 71.1 % 37.0 - complet 013 80.0 ed 10:53 EO% 05-06-2 1.40 % 0.00 - complet 013 7.00 ed 10:53 BA% 09-2 0.80 % 0.00 - complet 013 2.50 ed 10:53 LY# 09-09-2 2.69 0.60 - complet 013 K/uL 3.40 ed 10:53 MO# -09-2 1.23 0.00 - Above complet 013 K/uL 0.90 high ed 10:53 normal NE# 09-2 10.45 2.00 - Above complet 013 K/uL 6.90 high ed 10:53 normal EO# -09-2 0.21 0.00 - complet 013 K/uL 0.70 ed 10:53 [id number] (05-06-2013 10:53) URIC 3.5 2.60 - complet ACID 013 mg/dL 7.20 ed 10:53 [id number] (05-06-2013 10:53) TSH 1.20 0.36 - complet 013 uIU/mL 3.74 ed 10:53 [id number] (05-06-2013 10:53) *GFR complet 013 only ed 10:53 applies to adults over the age 18. SODIUM 134 136 - Below complet 013 mmol/L 145 low ed 10:53 normal POTASSI 3.6 3.50 - complet UM 013 mmol/L 5.10 ed 10:53 CHLORID 99 98 - complet E 013 mmol/L 107 ed 10:53 TOTAL 25 21 - 32 complet CO2 013 mmol/L ed 10:53 ANION 14 5 - 15 complet GAP 013 mmol/L ed 10:53 GLUCOSE 90 70 - complet 013 mg/dl 120 ed 10:53 BUN 14 7 - 18 complet 013 mg/dl ed 10:53 CREATIN 1.0 0.60 - complet INE 013 mg/dl 1.30 ed 10:53 AGE 09 47 yrs complet 013 ed 10:53 GFR 60 complet 013 ml/min ed 10:53 CALCIUM 8.7 8.50 - complet 013 mg/dl 10.10 ed 10:53 TOTAL 1.4 0.20 - Above complet ARACELI 013 mg/dl 1.0 high ed 10:53 normal AST 21 IU/L 15 - 37 complet (SGOT) 013 ed 10:53 ALT 50 IU/L 12 - 78 complet (SGPT) 013 ed 10:53 ALK 100 50 - complet PHOS 013 IU/L 136 ed 10:53 TOTAL 7.3 6.40 - complet PROTEIN 013 g/dl 8.20 ed 10:53 ALBUMIN 4.1 3.40 - complet 013 g/dl 5.0 ed 10:53 GLOBULI 3.2 1.30 - complet N 013 g/dl 3.50 ed 10:53 A/G 1.3 1.0 - complet RATIO 013 ratio 3.90 ed 10:53 /BLDo/G complet 013 LOMERUL ed 10:53 AR FILTRAT ION RATE INTERPR ETATION /BLDx/ Normal complet 013 Range: ed 10:53 60 Ml/min/ 1.73 sq meters If complet 013 patient ed 10:53 is Olga Lidia n, multipl y GFR by 1.120. [id number] (03-31-2013 08:25) URIC 2.5 2.60 - Below complet ACID 013 mg/dL 7.20 low ed 08:25 normal
--- OUTSIDE RECORDS SUMMARY | 2017-07-18 15:45 | External Medical Summary Rpt | CCD ---
Author Author , [facility] [employer] Address Unknown Phone [email or web address] D[employer] Immunization Name Date Rout CVX Reac Dose Comm Prov Is Faci e tion ent ider Refu lity Give sed n Infl 12-1 140 0.5 Hist [facility] No [facility] uenz 6-20 mL oric 1 1 a, 14 al P-Fr Info ee rmat ion - Sour ce Unsp ecif ied
--- OUTSIDE RECORDS SUMMARY | 2017-07-18 15:45 | External Medical Summary Rpt | CCD ---
Demographics Home Phone Preferred Language [place] Marital Status Unknown Yarsanism Affiliation Unknown Race Unknown Ethnic Group Unknown Author Author , [facility] Organization [facility] Address Unknown Phone .Siri Purpose Continuity of Care Document - 03-31-2013 [...] 017 K/mm3 ed monocyt 12:04 e count [place] % = 5.4 % 1.7-9.3 complet 017 [...] SQUARE METERS Comment: If this patient is -[place], then multiply the Comment: result by 1.210. [...] IS CONSISTENT WITH MYOCARDIAL ISCHEMIA OR INFARCTION 45424-2 (2013 04:15) WBC 10.1 4.60 - complet [...] complet Diff 013 INDICAT ed 04:15 [place] [id number] (2013 04:15) SODIUM 05-08- 138 136 - [...] applies to adults over the age 18. 05252-8 (2013 01:25) INITIAL complet 013 ed 01:25 [...] - complet 013 ng/ml 3.60 ed 01:25 [id number] (05-07-2013 19:20) TROPONI 0.00 0.00 - complet [...] LE ON PATIENT S W/GAEL L CKMB [id number] (05-07-2013 13:25) TROPONI 0.01 0.00 - complet [...] LE ON PATIENT S W/GAEL L CKMB 76440-1 (05-07-2013 09:56) Rbc -- NEGATIV NL: active [...] 73 - complet 013 393 ed 07:32 [id number] (05-07-2013 07:32) TROPONI 0.00 0.00 - complet N-I 013 ng/ml 0.06 ed 07:32 INITIAL complet 013 ed 07:32 TROPONI N? _YES_ 3.0808. MDA. . .M 0 - complet 013 0.06 ed 07:32 ng/ml (NEGATI VE) > 0.06 complet 013 ng/ml ed 07:32 (POSITI VE) [id number] (05-06-2013 14:33) Color YELLOW NL: complet 013 [...] YES complet TO IC 013 ed 14:33 [id number] (05-06-2013 10:53) BA# 0.12 0.00 - complet [...] complet ACID 013 mg/dL 7.20 ed 10:53 [id number] (05-06-2013 10:53) TSH 1.20 0.36 - complet 013 uIU/mL 3.74 ed 10:53 [id number] (05-06-2013 10:53) *GFR complet 013 only ed [...]
[2017-07-18 16:16] VITALS: BP 125/91
[2017-07-18] MEDS ORDERED: RESTORIL 30MG C30 MG PO (18:23)
[2017-07-18] MEDS ORDERED: CARVEDILOL6.25 M1 PO (18:36)
[2017-07-18 19:37] LABS: LYMPH # 2.7 K/mm3 (0.7-4.5); LYMPH % 20.3 % (10-50)
[2017-07-18 19:44] LABS: HEMOGLOBIN 15.7 g/dL (14.1-18.0)
[2017-07-18 19:55] VITALS: BP 138/78
[2017-07-18 20:55] VITALS: BP 148/92
[2017-07-18 22:00] VITALS: BP 139/91
[2017-07-19] VITALS (14 sets, daily range): BP systolic 117–145; BP diastolic 64–94
--- NOTE | 2017-07-19 07:15 | PHARMACY CLINIC NOTE ---
Patient Demographics Patient Demographics Admission date: 07/18/17 Date: 07/19/17 Time: 0714 Allergies Coded Allergies: No Known Allergies (07/18/17) HEIGHT- FT: 6 IN: 5.00 K.094 VTE General Information Labs: Laboratory Tests 07/19 07/18 07/18 0505 1930 1204 Coagulation PT (9.4 - 11.8 SECONDS) 10.9 INR (0.9 - 1.1) 1.01 APTT (23.6 - 34.0 SECONDS) 26.1 Hematology Hgb (14.1 - 18.0 g/dL) 15.7 17.6 Hct (42.0 - 52.0 %) 46.1 51.5 Plt Count (142 - 424 K/mm3) 156 190 Disclaimer The following section includes nursing documentation that has been pulled in for pharmacy review. Patient's VTE score: 3 Patient's VTE Risk: LOW RISK Clinical trial participant? No VTE prophylaxis [id number] [id number] VTE prophylaxis ordered? Yes Type of prophylaxis/treatment: BELLA at 0714
--- NOTE | 2017-07-19 08:30 | HISTORY AND PHYSICAL REPORT ---
See Addendum History and Physical Demographics Admission date: 07/18/17 Chief Complaint: Chest pain Primary Diagnosis: STEMI Allergies: Coded Allergies: No Known Allergies (07/18/17) History of present illness: 52-year-old white male presented to the office yesterday for chest pain that onset at 3 AM without resolution. Patient relates a 4 day history of intermittent activity associated chest pain that would resolve with rest. Symptoms are described as a substernal heavy pressure and tightness with radiation into the LEFT arm and into the neck. Electrocardiogram in the office revealed ST elevation in inferior leads. Patient was taken urgently to the cardiac agriculture laborer with subsequent coronary intervention. Patient had three-vessel disease and was admitted overnight with IV Integrilin. He has no further chest pain this morning. Medical history Family history: Diabetes No CAD No Immunization history: DT/Tetanus Unknown Flu Refused Pneumonia Refuses TB Test in last year No Other history: Angina: No AR: No Hypertension? Yes Hyperlipidemia? No CHF? No COPD? No Asthma? No Hernia? No CVA? No Seizures? Yes Diabetes? Yes Insulin Dependent: No Home FSBS? No UTI? No Stones? No GB Disease: No Hepatitis? No Cataracts? No Glaucoma? No TB? No Cancer? No Surgical history: Previous Surgery?N Current home meds: Reported Medications Temazepam (Restoril 30MG) 30 MG PO QHS #30 Carvedilol 6.25 MG PO BID #60 Social history Smoking history: Tobacco Yes Type Cigarettes Packs/day 2 1/2 - 3 Packs Are you/the child exposed to second-hand smoke: Yes Alcohol: Alcohol: No History of drug use: Drug Use? No Patien't marital status is: Review of systems Constitutional: Positive for: weak. Cardiovascular: Positive for: chest pain. Respiratory: Positive for: shortness of air. Neurological: No: change in LOC, syncope. Physical exam: Lab data for last 24 hours: Laboratory Tests 07/19/17 0505: Triglycerides 290 H, Cholesterol 171, LDL Cholesterol 91.0, VLDL Cholesterol 58.0 H, HDL Cholesterol 22.0 L, APTT 26.1 07/18/17 1930: Sodium 141, Potassium 3.6, Chloride 106, Carbon Dioxide 28, BUN 10, Creatinine 0.9, Estimated Creat Clear 155, Estimated GFR (MDRD) 89, Glucose 144 H, Calcium 8.5, PT 10.9, INR 1.01, WBC 13.0 H, RBC 5.05, Hgb 15.7, Hct 46.1, MCV 91.3, RDW 12.8, Plt Count 156, MPV 8.4, Gran % 71.1, Gran # 9.3 H, Lymphocytes % 20.3, Monocytes % 4.4, Eosinophils % 3.3, Basophils % 0.9, Lymphocytes # 2.7, Monocytes # 0.6, Eosinophils # 0.4, Basophils # 0.1, PUBS MCHC 34.0, MCH 31.1 07/18/17 1331: POC Activ Clotting Time 327 *H 07/18/17 1254: POC Activ Clotting Time >400 *H 07/18/17 1204: Creatine Kinase 441 H, CK-MB (CK-2) Rel Index 11.8 *H, CK and CKMB Interp 51.9 *H, Troponin I 2.89 H 07/18/17 1204: Sodium 143, Potassium 4.1, Chloride 104, Carbon Dioxide 31, BUN 12, Creatinine 1.0, Estimated Creat Clear 122, Estimated GFR (MDRD) 78, Glucose 103, Calcium 8.7, WBC 11.1 H, RBC 5.68, Hgb 17.6, Hct 51.5, MCV 90.7, RDW 12.6, Plt Count 190, MPV 8.1, Gran % 64.3, Gran # 7.2, Lymphocytes % 26.1, Monocytes % 5.4, Eosinophils % 2.8, Basophils % 1.5, Lymphocytes # 2.9, Monocytes # 0.6, Eosinophils # 0.3, Basophils # 0.2, PUBS MCHC 34.2, MCH 31.0 Addmission vital signs: 1ST Vital Signs Result Date Time Pulse Ox 94 07/18 120 B/P 154/79 07/18 120 Pulse 71 07/18 1206 Resp 22 07/18 120 Temp 97.9 07/18 1413 O2 Delivery ROOM AIR 07/18 141 Exam: General appearance: alert, awake, no acute distress Cardiovascular: regular rate & rhythm Respiratory: clear to auscultation Extremities: moves all, no peripheral edema Neuro: alert, intact, oriented Assessment and Plan: Problem List 1. Acute inferior myocardial infarction 2. Hypertension 3. Hyperlipidemia 4. Diabetes mellitus type 2 in nonobese 5. Tobacco abuse Plan: 1. Acute inferior ST elevation myocardial infarction. Status post coronary stenting. Patient did receive IV Integrilin post coronary stenting due to no reflow phenomenon. He will remain on aspirin and Brilinta. Will start FLAVIO inhibitor, beta maddy, statin therapy along with aspirin and Brilinta. Patient will need additional coronary stenting in the near future. 2. History of diabetes mellitus with intermittent metformin use. 3. Tobacco use, will use Nicotine patches while here with cessation recommended. 4. Hypertension with history of medication noncompliance 5. Hyperlipidemia 6. History of seizure episode about the time of diabetes diagnosis without recurrence. at 0833
[2017-07-19] MEDS ORDERED: SUNMARK NI21 MG/24 H TD (12:11)
[2017-07-19] MEDS ORDERED: BISOPROLOL 5MG T5 MG PO (12:11)
[2017-07-19] MEDS ORDERED: LISINOPRIL 5MG T5 MG PO (12:12)
[2017-07-19] MEDS ORDERED: BRILINTA90 MG PO (12:14)
[2017-07-19 13:32] LABS: HEMOGLOBIN 15.5 g/dL (14.1-18.0)
[2017-07-20] VITALS (16 sets, daily range): BP systolic 99–172; BP diastolic 58–82
--- NOTE | 2017-07-20 09:54 | RADIOLOGY REPORT PS360 ---
CARDIAC CATHETERIZATION DATE OF CATHETERIZATION:07/20/2017 7:48 AM PROCEDURES: 1. 2. 3. 4. INDICATION FOR TEST: 1. 2. 3. Informed consent was obtained prior to the procedure. COMPLICATIONS: ESTIMATED BLOOD LOSS: Less than 10 ml. TECHNIQUE: One percent lidocaine used to anesthetize the right anterior aspect of the wrist. The right radial artery was accessed via the Seldinger technique. A 6 [place] sheath was placed in the right radial artery. 2.5 mg of verapamil, 800 mcg of nitroglycerin and 5000 U Heparin were given through the arterial sheath. The trap catheter was also used to perform left heart catheterization and left ventriculography. At the end of the procedure the patient was transferred to the post-op holding area in stable condition for arterial sheath removal. ANGIOGRAPHIC RESULTS: 1. The left main artery 2. The left anterior descending artery 3. The circumflex artery 4. The right coronary artery 5. The SERVIN ventriculogram reveals 6. The left ventricular end-diastolic pressure IMPRESSION: 1. coronary arteries. 2. 3. 4. 5. PLAN: 1. 2. 3. CARDIAC CATHETERIZATION DATE OF CATHETERIZATION:07/20/2017 9:25 AM PROCEDURES: 1. Selective coronary angiogram 2. Drug-eluting stent deployment to the mid codominant circumflex artery 3. Drug-eluting stent deployment to the proximal LAD 4. Drug-eluting stent deployment to the first diagonal artery INDICATION FOR TEST: 1. Recent ST elevation myocardial infarction 2. Coronary artery disease 3. Complete revascularization during index hospitalization for acute ST elevation myocardial infarction Informed consent was obtained prior to the procedure. COMPLICATIONS: None ESTIMATED BLOOD LOSS: Less than 10 ml. TECHNIQUE: One percent lidocaine used to anesthetize the right anterior aspect of the wrist. The right radial artery was accessed via the Seldinger technique. A 6 [place] sheath was placed in the right radial artery. 2.5 mg of verapamil, 800 mcg of nitroglycerin and 11,000 units of heparin were administered intra-arterially. The first ACT measured 364 seconds. An [place] left 3.5 guide catheter was used intubate the left main artery and the BMW wire was placed in the circumflex artery. A 3 mm x 12 mm resolute Ariel stent was deployed at 20 [place] reducing the 90% stenosis to 0%. A 3.5 x 6 mm compliant balloon was in placed proximally in the stent and deployed at 20 [place] in order to post dilate and provide better proximal apposition. Excellent angiographic results were obtained with PALMA-3 flow down the vessel before and after the procedure. The wire was in placed into the LAD and a 4 mm x 15 mm resolute [place] stent was deployed proximally at 15 [place]. Excellent angiographic results were obtained. The wire was pulled back and placed into the first diagonal artery right 2.25 x 12 mm resolute Ariel stent was deployed at 19 [place] reducing the stenosis to 0%. 800 mcg of nitroglycerin was administered intra-arterially. PALMA-3 flow was present before and after the procedure. At the end of the procedure the closing ACT was 398 seconds. The sheath was removed good hemostasis was achieved using TR banding patient was transferred to the postop holding area in stable condition ANGIOGRAPHIC RESULTS: 1. The left main artery normal 2. The left anterior descending artery has proximal 50-60% stenosis mid vessel 30% stenosis distal 30% stenoses. The first diagonal artery is a large vessel and has a proximal 90% eccentric stenosis 3. The circumflex artery is a large codominant vessel and has diffuse vascular ectasia. There is no focal stenosis in the proximal portion. The first obtuse marginal artery is a large vessel and has 30% mid vessel stenosis with mild to moderate vascular ectasia. In between the first and second obtuse marginal artery is a 90% stenosis. The second obtuse marginal artery then has an ostial 30-40% stenosis with proximal vascular ectasia while the third obtuse marginal artery has an ostial 30-40% stenosis also with proximal vascular ectasia. After the stent was deployed the 90% lesion was completely reduced to 0% with excellent distal and proximal apposition. 4. The right coronary artery is a codominant vessel and has proximal 30-40% atheromatous plaque with a stent in the mid segment which is widely patent with excellent proximal and distal transitioning. Additional 30 and 40% stenoses are present proximally as well as in the proximal and mid posterior descending artery. Mild/moderate vascular ectasia is present throughout the entire vessel 5. The SERVIN ventriculogram was not performed during this catheterization 6. The left ventricular end-diastolic pressure not obtained IMPRESSION: 1. Severe [place] three-vessel coronary artery disease as described above 2. Successful stenting of a very large codominant mid circumflex artery 90% stenosis reduced to 0% with 1 drug-eluting stent 3. Successful stenting of 50-60% proximally stenosed LAD, severe disease reduced to 0% with 1 drug-eluting stent 4. Successful stenting of a large proximal first diagonal artery 90% stenosis reduced to 0% with 1 drug-eluting stent 5. Diffuse vascular ectasia throughout the circumflex and right coronary artery 6. Persistent diffuse coronary artery disease as described above 7. Patent stent in the mid right coronary artery PLAN: 1. Brilinta and aspirin 2. LDL less than 55 3. Absolute tobacco cessation 4. Isosorbide mononitrate 30 mg daily will be started due to patient's endothelial dysfunction 5. Cardiac rehabilitation 6. Low-dose mary inhibitor and carvedilol
--- NOTE | 2017-07-20 10:14 | RADIOLOGY REPORT PS360 ---
CARDIAC CATHETERIZATION DATE OF CATHETERIZATION:07/18/2017 1300 PROCEDURES: 1. Selective coronary angiogram 2. Left heart catheterization 3. Left ventriculogram 4. Thrombectomy followed by drug-eluting stent deployment to the mid codominant right coronary artery 5. Angioplasty to the RV marginal branch 6. Angioplasty to the posterior descending artery INDICATION FOR TEST: 1. ST elevation myocardial infarction 2. Coronary artery disease Informed consent was obtained prior to the procedure. COMPLICATIONS: None ESTIMATED BLOOD LOSS: Less than 10 ml. TECHNIQUE: One percent lidocaine used to anesthetize the right anterior aspect of the wrist. The right radial artery was accessed via the Seldinger technique. A 6 [place] sheath was placed in the right radial artery. 2.5 mg of verapamil, 800 mcg of nitroglycerin and 5000 U Heparin were given through the arterial sheath. Patient had artery received 10,000 units of heparin in the emergency department along with 180 mg of oral Brilinta. The ACT measured out of range. An BRAIN right guide catheter was used to perform selective coronary angiography of the right coronary artery. A choice PT extra-support wire was placed through the acute occlusion. An aspiration catheter was advanced but could not traverse the occlusion. At this point a 3 mm x 12 mm balloon was deployed at 20 [place] opening the artery but only improving to PALMA I flow. At this point a 3.5 x 6 mm resolute Ariel stent was deployed at 24 [place] reducing the stenosis to 0%. The wire was pulled back and placed into the posterior descending artery and an aspiration catheter was placed into the posterior descending artery. Flow was not restored despite aspirating the PDA. A 2 mm x 12 mm balloon was in placed into the posterior descending artery and deployed reducing the 100% occlusion to 30%. Nitroglycerin was administered down the coronary artery on multiple occasions. Eventually flow was restored along with PALMA-3 flow throughout the vessel. The RV marginal branch was occluded therefore the wire was pulled back and placed into the RV marginal branch or a fresh 2 mm balloon was used to open the struts going into the RV marginal and 2 branches. At the end of the procedure there was enough flow down the RV marginal branch. 10 cc of Integrilin was also injected directly into the coronary arteries. After PALMA-3 flow was restored the left heart catheterization and left ventriculogram was performed. Angiography involving the LAD left main artery and circumflex artery was then performed. At the end of the procedure the sheath was removed good hemostasis was achieved using TR banding patient was transferred to the postop holding area in stable condition ANGIOGRAPHIC RESULTS: 1. The left main artery normal 2. The left anterior descending artery has a proximal eccentric 60-70% stenosis followed by a mid vessel 30% stenosis followed by additional mid vessel to distal 30% stenoses. The first diagonal artery is a large vessel and has a proximal eccentric 90% stenosis 3. The circumflex artery is a codominant vessel and has mild to moderate vascular ectasia throughout. The mid circumflex artery has a concentric 80-90% stenosis between the first and second obtuse marginal artery. The second obtuse marginal artery has an ostial 40-50% while the third obtuse marginal artery has a proximal 50-60% stenosis. 4. The right coronary artery is codominant and was initially proximally occluded. After the revascularization the right coronary artery was widely patent with PALMA-3 flow. Proximally there were 30 and 40% stenoses with diffuse moderate vascular ectasia. The stent was widely patent. Distal to the stent were diffuse 40% stenoses. The posterior descending artery has 240s and 150% stenosis and then quickly tapers to a small caliber distal vessel 5. The SERVIN ventriculogram reveals normal 60% 6. The left ventricular end-diastolic pressure 25 mmHg IMPRESSION: 1. Acute ST elevation myocardial infarction as described above 2. Successful drug-eluting stent deployment in the 100% occluded right coronary artery reducing the stenosis to 0% and restoring PALMA-3 flow 3. Successful angioplasty the RV marginal branch and posterior descending artery 4. Persistent moderate to severe proximal LAD disease 5. Persistent severe proximal large first diagonal artery disease 6. Persistent severe mid codominant circumflex artery disease 7. Normal ejection fraction 8. Located LVEDP PLAN: 1. Brilinta and aspirin 2. Absolute tobacco cessation 3. Carvedilol and lisinopril 4. Crestor 10 mg daily in order to achieve an LDL less than 55 5. Cardiac rehabilitation 6. Patient will be brought back to the [facility] during this index hospitalization for complete revascularization involving the proximal LAD proximal first diagonal artery and mid codominant circumflex artery
== END 2017-07-20 14:55 | disposition home or self-care (01) | DRG 246 ==
LOC: ER 12:01 → CATHLAB 15:35 → 2ND 15:39
PROVIDERS: Internal Medicine
PROC: 027034Z Dilation of Coronary Artery, One Artery with Drug-eluting Intraluminal Device, Percutaneous Approach (ICD-10-PCS; 2017-07-18)
PROC: B2111ZZ Fluoroscopy of Multiple Coronary Arteries using Low Osmolar Contrast (ICD-10-PCS; 2017-07-18)
PROC: 027136Z Dilation of Coronary Artery, Two Arteries with Three Drug-eluting Intraluminal Devices, Percutaneous Approach (ICD-10-PCS; 2017-07-18)
PROC: B2151ZZ Fluoroscopy of Left Heart using Low Osmolar Contrast (ICD-10-PCS; 2017-07-18)
PROC: B2111ZZ Fluoroscopy of Multiple Coronary Arteries using Low Osmolar Contrast (ICD-10-PCS; 2017-07-18)
PROC: 4A023N7 Measurement of Cardiac Sampling and Pressure, Left Heart, Percutaneous Approach (ICD-10-PCS; principal; 2017-07-18 12:30)
DX: I21.19 ST elevation (STEMI) myocardial infarction involving other coronary artery of inferior wall (principal); E11.9 Type 2 diabetes mellitus without complications; I25.10 Atherosclerotic heart disease of native coronary artery without angina pectoris; Z72.0 Tobacco use; I10 Essential (primary) hypertension
CPT/HCPCS: C1725; C1760; C1769; C1876; J1327; J1644; Q9967